=== PATIENT | female | born 1955 | race Caucasian/White ===

== ENCOUNTER 2019-04-08 08:31 | Emergency (ER) | payer OTHER ==
--- NOTE | 2019-04-08 09:42 | EDM.PDOC ---
ED HPI GENERAL MEDICAL PROBLEM - General Chief Complaint: Abdominal Pain Stated Complaint: LOWER ABD PAIN Time Seen by Provider: 04/08/19 08:50 Source of Information: Reports: Patient, RN History Limitations: Reports: No Limitations - History of Present Illness INITIAL COMMENTS - FREE TEXT/NARRATIVE: ED with lower abdominal pain starting on Thursday, Worsening past couple of days, Has not slept past 2 nights as unable to find position of comfort, Possible fever last night, Normal BM's, No nausea or vomiting. No change in stools, Last colonoscopy 4 years ago and no problems. Denies urinary symptoms. Pain colicky type, mild at least up to 10/10 at worst. Some decrease in appetite. On metformin and phentermine for weight loss. Notes is not diabetic. Has not taken Metformin for past week Abdominal Pain Score (Numeric/FACES): 10 - Related Data Allergies Allergy/AdvReac Type Severity Reaction Status Date / Time phenytoin [From Dilantin] Allergy Hives Verified 04/08/19 08:51 Home Meds: Home Meds Aspirin [Adult Low Dose Aspirin EC] 81 mg PO DAILY 04/08/19 [History] Furosemide 04/08/19 [History] buPROPion [Wellbutrin] 75 mg PO DAILY 04/08/19 [History] hydroCHLOROthiazide [Hydrochlorothiazide] 04/08/19 [History] ED ROS GENERAL - Review of Systems Review Of Systems: ROS reveals no pertinent complaints other than HPI. ED EXAM, GI/ABD - Physical Exam Exam: See Below Exam Limited By: No Limitations General Appearance: Alert, Mild Distress, Obese Eyes: Bilateral: EOMI Ears: Normal External Exam, Hearing Grossly Normal Nose: Normal Mucosa Throat/Mouth: Normal Inspection, Normal Lips Head: Atraumatic, Normocephalic Neck: Normal Inspection, Full Range of Motion Respiratory/Chest: No Respiratory Distress, Lungs Clear, Normal Breath Sounds Cardiovascular: Normal Peripheral Pulses, Regular Rate, Rhythm, No Murmur GI/Abdominal Exam: Normal Bowel Sounds (upper quads), Soft, Tender (lower abdomen with light palpation), Abnormal Bowel Sounds (some decrease lower quads in comparison to upper). No: Distended, Guarding, Rebound Extremities: Normal Range of Motion Neurological: Alert, Oriented, Normal Cognition Psychiatric: Normal Affect Skin Exam: Warm, Dry, Intact, Normal Color Course - Vital Signs Last Recorded V/S: Last Vital Signs Temp 97.8 F 04/08/19 08:43 Pulse 83 04/08/19 08:43 Resp 20 04/08/19 08:43 BP 110/92 H 04/08/19 08:43 Pulse Ox 100 04/08/19 08:43 - Orders/Labs/Meds Labs: Laboratory Tests 04/08/19 04/08/19 04/08/19 Range/Units 09:17 09:17 09:17 WBC 14.0 H (5.0-10.0) 10^3/uL RBC 4.83 (4.2-5.4) 10^6/uL Hgb 13.9 (12.0-16.0) g/dL Hct 42.2 (37.0-47.0) % MCV 87.4 (80-100) fL MCH 28.8 (27.0-34.0) pg MCHC 32.9 L (33.0-35.0) g/dL Plt Count 287 (150-450) 10^3/uL Neut % (Auto) 84.8 H (42.2-75.2) % Lymph % (Auto) 8.7 L (20.5-50.1) % [place] % (Auto) 5.5 (2-8) % Eos % (Auto) 0.6 L (1.0-3.0) % Baso % (Auto) 0.4 (0.0-1.0) % Sodium 136 (135-145) mmol/L Potassium 3.2 L (3.6-5.0) mmol/L Chloride 95 L (101-111) mmol/L Carbon Dioxide 29.0 (21.0-31.0) mmol/L Anion Gap 15.2 BUN 13 (7-18) mg/dL Creatinine 0.9 (0.6-1.3) mg/dL Est Cr Clr Drug Dosing 50.60 mL/min Estimated GFR (MDRD) > 60 BUN/Creatinine Ratio 14.44 Glucose 129 H (74-105) mg/dL Lactic Acid (0.5-2.2) mmol/L Calcium 9.4 (8.4-10.2) mg/dl Total Bilirubin 0.9 (0.2-1.0) mg/dL AST 23 (10-42) IU/L ALT 28 (10-60) IU/L Alkaline Phosphatase 85 (42-121) IU/L Total Protein 7.2 (6.7-8.2) g/dl Albumin 3.9 (3.2-5.5) g/dl Globulin 3.3 Albumin/Globulin Ratio 1.18 Amylase 22 L (28-100) U/L Lipase 31 (22-51) U/L Urine Color Yellow (YELLOW) Urine Appearance Clear (CLEAR) Urine pH 7.0 (5.0-9.0) Ur Specific [place] 1.015 (1.005-1.030) Urine Protein Negative (NEGATIVE) Urine Glucose (UA) Negative (NEGATIVE) Urine Ketones Negative (NEGATIVE) Urine Occult Blood Negative (NEGATIVE) Urine Nitrite Negative (NEGATIVE) Urine Bilirubin Negative (NEGATIVE) Urine Urobilinogen 1.0 (0.2-1.0) mg/dL Ur Leukocyte Esterase Negative (NEGATIVE) 04/08/19 Range/Units 09:17 WBC (5.0-10.0) 10^3/uL RBC (4.2-5.4) 10^6/uL Hgb (12.0-16.0) g/dL Hct (37.0-47.0) % MCV (80-100) fL MCH (27.0-34.0) pg MCHC (33.0-35.0) g/dL Plt Count (150-450) 10^3/uL Neut % (Auto) (42.2-75.2) % Lymph % (Auto) (20.5-50.1) % [place] % (Auto) (2-8) % Eos % (Auto) (1.0-3.0) % Baso % (Auto) (0.0-1.0) % Sodium (135-145) mmol/L Potassium (3.6-5.0) mmol/L Chloride (101-111) mmol/L Carbon Dioxide (21.0-31.0) mmol/L Anion Gap BUN (7-18) mg/dL Creatinine (0.6-1.3) mg/dL Est Cr Clr Drug Dosing mL/min Estimated GFR (MDRD) BUN/Creatinine Ratio Glucose (74-105) mg/dL Lactic Acid 1.7 (0.5-2.2) mmol/L Calcium (8.4-10.2) mg/dl Total Bilirubin (0.2-1.0) mg/dL AST (10-42) IU/L ALT (10-60) IU/L Alkaline Phosphatase (42-121) IU/L Total Protein (6.7-8.2) g/dl Albumin (3.2-5.5) g/dl Globulin Albumin/Globulin Ratio Amylase (28-100) U/L Lipase (22-51) U/L Urine Color (YELLOW) Urine Appearance (CLEAR) Urine pH (5.0-9.0) Ur Specific [place] (1.005-1.030) Urine Protein (NEGATIVE) Urine Glucose (UA) (NEGATIVE) Urine Ketones (NEGATIVE) Urine Occult Blood (NEGATIVE) Urine Nitrite (NEGATIVE) Urine Bilirubin (NEGATIVE) Urine Urobilinogen (0.2-1.0) mg/dL Ur Leukocyte Esterase (NEGATIVE) Meds: Medications Discontinued Medications Generic Name Dose Route Start Last Admin Trade Name Freq PRN Reason Stop Dose Admin Hydromorphone HCl 1 mg 04/08/19 11:03 04/08/19 11:12 Dilaudid IVPUSH 04/08/19 11:04 1 mg ONETIME ONE Administration Iopamidol 100 ml 04/08/19 09:56 04/08/19 10:23 Isovue-300 (61%) IVPUSH 04/08/19 09:57 100 ml ONETIME ONE Administration Ondansetron HCl 4 mg 04/08/19 11:03 Zofran IV 04/08/19 11:04 ONETIME ONE Departure - Departure Time of Disposition: 11:52 Disposition: Home, Self-Care 01 Condition: Good Clinical Impression: Diverticulitis large intestine Qualifiers: Diverticulitis bleeding: unspecified bleeding status Diverticulitis complication: without perforation or abscess Qualified Code(s): K57.32 - Diverticulitis of large intestine without perforation or abscess without bleeding - Discharge Information *PRESCRIPTION DRUG MONITORING PROGRAM REVIEWED*: No *COPY OF PRESCRIPTION DRUG MONITORING REPORT IN PATIENT JINNY: No Instructions: Diverticulitis Forms: ED Department Discharge Additional Instructions: light diet increase fluids rest no alcohol while taking flagyl zofran 4mg ODT one every 6 hours as needed for nausea cipro 500mg one twice daily for 10 days flagyl 500mg one three times daily hydrocodone 10/325 one every 6 hours as needed for severe pain avoid ibuprofen
[2019-04-08 09:48] LABS: ANION GAP 15.2; CHLORIDE,CL 95 mmol/L (101-111); SODIUM,NA 136 mmol/L (135-145)
[2019-04-08] MEDS ORDERED: Iopamidol 612 MG/ML 100 ML Bottle IVPUSH ONE (09:56)
[2019-04-08] MEDS ORDERED: HYDROmorphone 1 MG/ML Syringe IVPUSH ONE (11:03)
[2019-04-08] MEDS ORDERED: Ondansetron 4 MG/2 ML SDV IV ONE (11:03)
--- NOTE | 2019-04-08 11:26 | CT ---
EXAMINATION: Abdomen Pelvis w Cont SEX: Female AGE: 63 years CLINICAL HISTORY: 63 year-old 239 pound female complaining of lower abdominal pain. Patient has history of previous surgeries (hysterectomy; cholecystectomy) and "distal colonic diverticulitis" (CT scan 11 May 2012). Scan technique: Volume acquisition of data from the abdomen and pelvis obtained without oral contrast but after intravenous infusion of 75 cc nonionic Isovue contrast while patient waslying supine on the Siemens multi slice scanner [facility]. All data archived in the PACS system for storage, reformatting axial/sagittal/coronal planes and study. Interpretation: Abnormal. 1. Multiple sigmoid diverticula with associated inflammatory "dirty" pericolonic fat i.e. acute diverticulitis. No abscess. 2. Diverticula also identified in both flexures and the descending left colon. No colonic mass lesion or mechanical bowel obstruction. Normal retrocecal appendix RLQ. 3. No pelvic or abdominal mass lesion. No mesenteric or retroperitoneal lymphadenopathy. No ascites or free air. 4. Cholecystectomy. Liver, stomach, spleen, pancreas and adrenal glands unremarkable. 5. Normal caliber aortoiliac vessels. 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 6. Normal cardiac silhouette. Lung bases clear. CONCLUSION: Acute DIVERTICULITIS, sigmoid colon.
== END 2019-04-08 12:12 | disposition home or self-care (01) ==
LOC: DL.ED 08:31
DX: K57.32 Diverticulitis of large intestine without perforation or abscess without bleeding (principal); Z88.8 Allergy status to other drugs, medicaments and biological substances; Z79.82 Long term (current) use of aspirin; Z79.899 Other long term (current) drug therapy
CPT/HCPCS: 36415; 74177; 80053; 81003; 82150; 83605; 83690; 85025; 96374; 99284; J1170; Q9967

== ENCOUNTER 2019-07-11 05:53 | Day surgery (SDC) | payer OTHER ==
[2019-07-11] MEDS ORDERED: Sodium Chloride 0.9% 10 ML Syringe FLUSH PRN (06:00)
[2019-07-11] MEDS ORDERED: Dextrose 5%-0.45% NaCl 1,000 ML IV SCH (06:00)
[2019-07-11] MEDS ORDERED: Midazolam 1 MG/ML 2 ML SDV ONE (06:16)
[2019-07-11] MEDS ORDERED: fentaNYL 100 MCG/2 ML SDV ONE (06:17)
[2019-07-11] MEDS ORDERED: fentaNYL 100 MCG/2 ML SDV IV ONE ×6 (07:10→07:24)
[2019-07-11] MEDS ORDERED: Midazolam 1 MG/ML 2 ML SDV IV ONE ×6 (07:11→07:17)
--- NOTE | 2019-07-11 08:17 | OR ---
DATE: 07/11/2019 PROCEDURE: Total colonoscopy. INSTRUMENT USED: PCF-H190DL Olympus video colonoscope. PREMEDICATIONS: Fentanyl 200 mcg intravenous, Versed 4 mg intravenous, nasal O2 cannula. The procedure was done under pulse oximetry, BP recording, and sexual abuse counsellor. INDICATION: The patient with recent subacute colonic diverticulitis and intermittent small volume rectal bleeding recently. Colonoscopic examination is done for detection of any polypoid lesions and removal, endoscopic hemostasis therapy if needed. DESCRIPTION OF PROCEDURE: Initial rectal exam showed small external hemorrhoidal tags. Rigid anoscopy showed small internal hemorrhoids which are bleeding from them. The colonoscope was passed with ease. Numerous scattered diverticula were noted in the distal left colon along with deformity. The scope was passed with ease up to the ileocecal area. The colon was found to be a long and redundant. Photographs were taken of the normal-appearing cecum, identified by landmarks of appendiceal orifice and double-bulged ileocecal folds. No bleeding was noted from any of the visualized areas at the commencement of the examination. The bowel preparation was found to be adequate, Energy scale 2 in all the regions. No stricture. No vascular ectasia. No large isolated ulcerations seen. No evidence of diffuse inflammatory bowel disease in the form of friability, contact bleeding, or ulcerations. No polyp or tumor mass identified. Some erythema was noted around one of the diverticular openings in the distal left colon. Probing the proximal sides of folds and flexures using adequate distention and clearing up the stool material, withdrawal of the scope was made, cecum to rectum time over 6 minutes. No bleeding was noted from any of the visualized areas at the completion of examination. IMPRESSION: 1. External and internal hemorrhoids. 2. Diverticulosis. The patient tolerated the procedure well. [facility] /[id number]
== END 2019-07-11 09:39 | disposition home or self-care (01) ==
LOC: DL.ENDO 05:53
PROVIDERS: ATTEND Internal Medicine Gastroenterology
DX: K57.30 Diverticulosis of large intestine without perforation or abscess without bleeding (principal); K62.5 Hemorrhage of anus and rectum; K64.8 Other hemorrhoids; K64.4 Residual hemorrhoidal skin tags; Q43.8 Other specified congenital malformations of intestine
CPT/HCPCS: G0121; J2250; J3010; J7042

== ENCOUNTER 2019-07-31 11:19 | Emergency (ER) | payer OTHER ==
[2019-07-31] MEDS ORDERED: Colchicine 0.6 MG Tab PO ONE (11:47)
[2019-07-31] MEDS ORDERED: methylPREDNISolone Sodium Succinate 125 MG/2 ML SDV IM ONE (11:47)
[2019-07-31] MEDS ORDERED: Lidocaine 5% Oint 35.44 GM Tube TOP ONE (11:47)
[2019-07-31 12:19] LABS: ANION GAP 14.8
[2019-07-31] MEDS ORDERED: Potassium Chloride 10 MEQ Tab.ER PO ONE (12:27)
--- NOTE | 2019-07-31 12:30 | EDM.PDOC ---
Scribed by Fiorella Tejada 07/31/19 [id number] for Miguel Jarrett MD ED HPI GENERAL MEDICAL PROBLEM - General Chief Complaint: Lower Extremity Injury/Pain Stated Complaint: GOUT LEFT BIG TOE Time Seen by Provider: 07/31/19 11:37 Source of Information: Reports: Patient, RN, RN Notes Reviewed History Limitations: Reports: No Limitations - History of Present Illness INITIAL COMMENTS - FREE TEXT/NARRATIVE: Patient presents to ER with gout to left foot and left great toe. Patient rates pain 10/. Pt states she had gout in the same joint 1 or 2 weeks ago and was treated at [facility] same day clinic with Colchicine and Prednisone. She says the clinic doctor told her to ice the foot, but that made it worse. I explained to the pt that heat actually helps dissolve gout crystals and ice does in fact make it worse. Onset: Gradual Duration: Getting Worse Location: Reports: Lower Extremity, Left Quality: Reports: Ache Severity: Moderate Improves with: Reports: None Worsens with: Reports: None Associated Symptoms: Reports: No Other Symptoms Left Foot Pain Score (Numeric/FACES): 70 - Related Data Allergies Allergy/AdvReac Type Severity Reaction Status Date / Time phenytoin [From Dilantin] Allergy Hives Verified 07/31/19 11:30 Home Meds: Home Meds Aspirin [Adult Low Dose Aspirin EC] 81 mg PO DAILY 04/08/19 [History] Furosemide 20 mg PO DAILY 04/08/19 [History] buPROPion [Wellbutrin] 75 mg PO DAILY 04/08/19 [History] hydroCHLOROthiazide [Hydrochlorothiazide] 50 mg PO DAILY 04/08/19 [History] Simvastatin 40 mg PO DAILY 07/08/19 [History] Past Medical History HEENT History: Reports: Impaired Vision Cardiovascular History: Reports: High Cholesterol, Hypertension Respiratory History: Reports: Sleep Apnea Gastrointestinal History: Reports: None, Colon Polyp, Hemorrhoids Genitourinary History: Reports: None 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: , 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 Musculoskeletal History: Reports: None, Arthritis Neurological History: Reports: CVA Psychiatric History: Reports: Anxiety, Depression Endocrine/Metabolic History: Reports: Obesity/BMI 30+, Osteopenia Hematologic History: Reports: None Immunologic History: Reports: None Oncologic (Cancer) History: Reports: None Dermatologic History: Reports: None - Infectious Disease History Infectious Disease History: Reports: None - Past Surgical History Head Surgeries/Procedures: Reports: None HEENT Surgical History: Reports: None Cardiovascular Surgical History: Reports: None Respiratory Surgical History: Reports: None GI Surgical History: Reports: Colonoscopy, Polypectomy Female Surgical History: Reports: Section, Hysterectomy Endocrine Surgical History: Reports: None Neurological Surgical History: Reports: None Musculoskeletal Surgical History: Reports: None Oncologic Surgical History: Reports: None Dermatological Surgical History: Reports: None Social & Family History - Family History Family Medical History: Noncontributory - Caffeine Use Caffeine Use: Reports: Coffee Other Caffeine Use: AVERAGE OF 2 CAFFIENATED BEVERAGES DAILY 1 CUP COFFEE, 1 CAN DIET COKE - Living Situation & Occupation Occupation: Employed Review of Systems - Review of Systems Review Of Systems: Comprehensive ROS is negative, except as noted in HPI. ED EXAM, GENERAL - Physical Exam Exam: See Below Exam Limited By: No Limitations General Appearance: Alert, WD/WN, No Apparent Distress, Obese Throat/Mouth: Normal Inspection Head: Atraumatic, Normocephalic Neck: Normal Inspection Respiratory/Chest: No Respiratory Distress Cardiovascular: Normal Peripheral Pulses, Regular Rate, Rhythm Back Exam: Normal Inspection Extremities: Normal Range of Motion (Except for left 1st MTPJ), No Pedal Edema, Normal Capillary Refill, Joint Swelling (Left 1st MTPJ is acutely tender, with increased warmth, swelling, and erythema, skin is intact.). No: Sarika's Sign Neurological: Alert, Oriented, No Motor/Sensory Deficits Psychiatric: Normal Mood Skin Exam: Dry, Intact Course - Vital Signs Last Recorded V/S: Last Vital Signs Temp 96.8 F 07/31/19 11:26 Pulse 86 07/31/19 11:26 Resp 18 07/31/19 11:26 BP 145/95 H 07/31/19 11:26 Pulse Ox 100 07/31/19 11:26 - Orders/Labs/Meds Orders: Active Orders 24 hr Category Date Time Status Potassium Chloride [Klor-Con 10] Med 07/31/19 12:27 Once 60 meq PO ONETIME ONE Labs: Laboratory Tests 07/31/19 07/31/19 07/31/19 Range/Units 11:54 11:54 11:54 WBC 10.8 H (5.0-10.0) 10^3/uL RBC 4.67 (4.2-5.4) 10^6/uL Hgb 13.3 (12.0-16.0) g/dL Hct 40.3 (37.0-47.0) % MCV 86.3 (80-100) fL MCH 28.5 (27.0-34.0) pg MCHC 33.0 (33.0-35.0) g/dL Plt Count 266 (150-450) 10^3/uL Neut % (Auto) 80.0 H (42.2-75.2) % Lymph % (Auto) 12.8 L (20.5-50.1) % [place] % (Auto) 5.9 (2-8) % Eos % (Auto) 0.7 L (1.0-3.0) % Baso % (Auto) 0.6 (0.0-1.0) % Sodium 136 (135-145) mmol/L Potassium 2.8 L (3.6-5.0) mmol/L Chloride 92 L (101-111) mmol/L Carbon Dioxide 32.0 H (21.0-31.0) mmol/L Anion Gap 14.8 BUN 20 H (7-18) mg/dL Creatinine 1.0 (0.6-1.3) mg/dL Est Cr Clr Drug Dosing 44.95 mL/min Estimated GFR (MDRD) 56 BUN/Creatinine Ratio 20.00 Glucose 113 H (74-105) mg/dL Uric Acid 9.6 H (2.6-7.2) mg/dL Calcium 9.2 (8.4-10.2) mg/dl Total Bilirubin 0.8 (0.2-1.0) mg/dL AST 24 (10-42) IU/L ALT 27 (10-60) IU/L Alkaline Phosphatase 66 (42-121) IU/L C-Reactive Protein 1.7 H (0.0-1.3) mg/dL Total Protein 6.9 (6.7-8.2) g/dl Albumin 3.8 (3.2-5.5) g/dl Globulin 3.1 Albumin/Globulin Ratio 1.23 Meds: Medications Discontinued Medications Generic Name Dose Route Start Last Admin Trade Name Freq PRN Reason Stop Dose Admin Colchicine 1.2 mg 07/31/19 11:47 07/31/19 12:00 Colcrys PO 07/31/19 11:48 1.2 mg ONETIME ONE Administration Lidocaine HCl 15 gm 07/31/19 11:47 07/31/19 12:02 Lidocaine 5% TOP 07/31/19 11:48 15 gm ONETIME ONE Administration Methylprednisolone Sodium Succinate 125 mg 07/31/19 11:47 07/31/19 12:02 Solu-Medrol IM 07/31/19 11:48 125 mg ONETIME ONE Administration Departure - Departure Time of Disposition: 12:08 Disposition: Home, Self-Care 01 Condition: Good Clinical Impression: Gouty arthritis of left great toe, Hypokalemia - Discharge Information *PRESCRIPTION DRUG MONITORING PROGRAM REVIEWED*: Not Applicable *COPY OF PRESCRIPTION DRUG MONITORING REPORT IN PATIENT JINNY: Not Applicable Instructions: Low-Purine Eating Plan, Gout Forms: ED Department Discharge Additional Instructions: Rx: Prednisone 20mg Rx: [place] (Hydrocodone) 5mg/325mg Rx: Colchicine Rx: Potassium Chloride 20mEq *Take with meals. Use dark cerna extract daily. Follow directions on package/label for dosing and precautions. Drink plenty of water. Avoid alcohol. Low purine diet. Hot pack or hot soaks. Follow up in clinic with Dr. Leal within the next one week for further gout evaluation and prevention planning. Sepsis Event Note - Evaluation Sepsis Screening Result: No Definite Risk - Focused Exam Vital Signs: Vital Signs Temp Pulse Resp BP Pulse Ox 07/31/19 11:26 96.8 F 86 18 145/95 H 100 Date Exam was Performed: 07/31/19 Time Exam was Performed: 12:28 - My Orders Last 24 Hours: My Active Orders 07/31/19 12:27 Potassium Chloride [Klor-Con 10] 60 meq PO ONETIME ONE - Assessment/Plan Last 24 Hours: My Active Orders 07/31/19 12:27 Potassium Chloride [Klor-Con 10] 60 meq PO ONETIME ONE I have read and agree with the documentation that has been completed regarding this visit. By signing this record, I attest that the documentation was completed in my physical presence and is an accurate record of the encounter.
== END 2019-07-31 12:54 | disposition home or self-care (01) ==
LOC: DL.ED 11:19
DX: M10.9 Gout, unspecified (principal); E87.6 Hypokalemia; F41.9 Anxiety disorder, unspecified; F32.9 Major depressive disorder, single episode, unspecified; E66.9 Obesity, unspecified; Z68.39 Body mass index [BMI] 39.0-39.9, adult; Z79.82 Long term (current) use of aspirin; Z79.899 Other long term (current) drug therapy; Z86.73 Personal history of transient ischemic attack (TIA), and cerebral infarction without residual deficits; Z88.8 Allergy status to other drugs, medicaments and biological substances
CPT/HCPCS: 36415; 80053; 84550; 85025; 86140; 96372; 99283; A9270; J2930

== ENCOUNTER 2021-01-18 12:51 | Emergency (ER) | payer OTHER ==
--- NOTE | 2021-01-18 13:17 | EDM.PDOC ---
ED HPI GENERAL MEDICAL PROBLEM - General Chief Complaint: Upper Extremity Injury/Pain Stated Complaint: FELL ON HAND Time Seen by Provider: 01/18/21 13:15 Source of Information: Reports: Patient History Limitations: Reports: No Limitations - History of Present Illness INITIAL COMMENTS - FREE TEXT/NARRATIVE: Patient is unfortunate 65-year-old obese female who presents emerged part today with complaint of left wrist pain. The patient reports she was in her normal state of health approximately 9 AM this morning when she has same level mechanical fall she tripped while walking and fell onto her left wrist she has had pain and swelling to her left wrist ever since. She reports that she put an ice pack on it at home and when she continued to have swelling and pain when she gripped her left hand she came concerned and presented emerged part for further evaluation. Distal neurovascular is intact - Related Data Allergies Allergy/AdvReac Type Severity Reaction Status Date / Time phenytoin [From Dilantin] Allergy Hives Verified 07/31/19 11:30 Home Meds: Home Meds Aspirin [Adult Low Dose Aspirin EC] 81 mg PO DAILY 04/08/19 [History] Furosemide 20 mg PO DAILY 04/08/19 [History] buPROPion [Wellbutrin] 75 mg PO DAILY 04/08/19 [History] hydroCHLOROthiazide [Hydrochlorothiazide] 50 mg PO DAILY 04/08/19 [History] Simvastatin 40 mg PO DAILY 07/08/19 [History] Past Medical History HEENT History: Reports: Impaired Vision Cardiovascular History: Reports: High Cholesterol, Hypertension Respiratory History: Reports: Sleep Apnea Gastrointestinal History: Reports: None, Colon Polyp, Hemorrhoids Genitourinary History: Reports: None 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: , 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 Musculoskeletal History: Reports: None, Arthritis Neurological History: Reports: CVA Psychiatric History: Reports: Anxiety, Depression Endocrine/Metabolic History: Reports: Obesity/BMI 30+, Osteopenia Hematologic History: Reports: None Immunologic History: Reports: None Oncologic (Cancer) History: Reports: None Dermatologic History: Reports: None - Infectious Disease History Infectious Disease History: Reports: None - Past Surgical History Head Surgeries/Procedures: Reports: None HEENT Surgical History: Reports: None Cardiovascular Surgical History: Reports: None Respiratory Surgical History: Reports: None GI Surgical History: Reports: Colonoscopy, Polypectomy Female Surgical History: Reports: Section, Hysterectomy Endocrine Surgical History: Reports: None Neurological Surgical History: Reports: None Musculoskeletal Surgical History: Reports: None Oncologic Surgical History: Reports: None Dermatological Surgical History: Reports: None Social & Family History - Family History Family Medical History: No Pertinent Family History - Caffeine Use Caffeine Use: Reports: Coffee Other Caffeine Use: AVERAGE OF 2 CAFFIENATED BEVERAGES DAILY 1 CUP COFFEE, 1 CAN DIET COKE - Living Situation & Occupation Occupation: Employed Review of Systems - Review of Systems Review Of Systems: Comprehensive ROS is negative, except as noted in HPI. Constitutional: Reports: No Symptoms Musculoskeletal: Reports: Joint Pain ED EXAM, GENERAL - Physical Exam Exam: See Below Exam Limited By: No Limitations General Appearance: Alert, WD/WN, Mild Distress Throat/Mouth: Normal Inspection Head: Atraumatic, Normocephalic Respiratory/Chest: No Respiratory Distress, Lungs Clear, Normal Breath Sounds, No Accessory Muscle Use, Chest Non-Tender Cardiovascular: Normal Peripheral Pulses, Regular Rate, Rhythm, No Edema, No Gallop, No JVD, No Murmur, No Rub GI/Abdominal: Normal Bowel Sounds, Soft, Non-Tender, No Organomegaly, No Distention, No Abnormal Bruit, No Mass Extremities: Other (Moderate swelling to left wrist with a small abrasion on the lateral aspect and a contusion on the medial aspect, distal neurovascular is intact, no tendon dysfunction noted) Course - Vital Signs Text/Narrative:: Left wrist, interpreted by me, NAD, no fracture, no navicular fracture Work-up today is reassuring, will discharge patient home place patient in Velcro wrist splint have patient follow-up outpatient with PCP or return to the emergency department for any worsening condition Last Recorded V/S: Last Vital Signs Temp 98.1 F 01/18/21 13:15 Pulse 89 01/18/21 13:15 Resp 16 01/18/21 13:15 BP 130/70 01/18/21 13:15 Pulse Ox 99 01/18/21 13:15 - Orders/Labs/Meds Orders: Active Orders 24 hr Category Date Time Status Wrist Comp Min 3V Lt [CR] Urgent Exams 01/18/21 13:14 Taken Departure - Departure Time of Disposition: 13:42 Disposition: Home, Self-Care 01 Condition: Good Clinical Impression: Contusion of left wrist, initial encounter Left wrist sprain Qualifiers: Encounter type: initial encounter Qualified Code(s): S63.502A - Unspecified sprain of left wrist, initial encounter - Discharge Information *PRESCRIPTION DRUG MONITORING PROGRAM REVIEWED*: No *COPY OF PRESCRIPTION DRUG MONITORING REPORT IN PATIENT JINNY: No Instructions: Contusion, [id number], Wrist Sprain Rehab-SportsMed Forms: ED Department Discharge Additional Instructions: Home, rest, ice 20 minutes at a time 3-4 times daily, Tylenol as needed for pain, return as needed for any worsening condition Follow-up outpatient with PCP in 1 week, if no improvement in symptoms follow-up with orthopedist in 1 week Sepsis Event Note (ED) - Focused Exam Vital Signs: Vital Signs Temp Pulse Resp BP Pulse Ox 01/18/21 13:15 98.1 F 89 16 130/70 99 - My Orders Last 24 Hours: My Active Orders 01/18/21 13:14 Wrist Comp Min 3V Lt [CR] Urgent - Assessment/Plan Last 24 Hours: My Active Orders 01/18/21 13:14 Wrist Comp Min 3V Lt [CR] Urgent
--- NOTE | 2021-01-18 14:09 | CR ---
PROCEDURE INFORMATION: Exam: XR Left Wrist Exam date and time: 01/18/2021 1:29 PM Age: 65 years old Clinical indication: Pain; Wrist; Left; Additional info: Pain/fall TECHNIQUE: Imaging protocol: XR Left wrist. Views: 3 or more views. COMPARISON: No relevant prior studies available. FINDINGS: Bones/joints: No acute fracture or dislocation is identified. The radiocarpal compartment is mildly narrowed. There are moderate productive changes about the 1st carpometacarpal joint, with periarticular osteophyte formation an osteochondral bodies, along with degenerative cystic change is at the base of the 1st metacarpal and in the trapezium. Soft tissues: The soft tissues appear grossly unremarkable. IMPRESSION: 1. No acute fracture or dislocation identified. 2. Degenerative changes as described.
== END 2021-01-18 14:00 | disposition home or self-care (01) ==
LOC: DL.ED 12:51
DX: S63.502A Unspecified sprain of left wrist, initial encounter (principal); E78.00 Pure hypercholesterolemia, unspecified; I10 Essential (primary) hypertension; M19.90 Unspecified osteoarthritis, unspecified site; E66.9 Obesity, unspecified; Z68.42 Body mass index [BMI] 45.0-49.9, adult; Z88.8 Allergy status to other drugs, medicaments and biological substances; Z79.82 Long term (current) use of aspirin; Z79.899 Other long term (current) drug therapy; W01.0XXA Fall on same level from slipping, tripping and stumbling without subsequent striking against object, initial encounter
CPT/HCPCS: 73110-LT; 99283-25

== ENCOUNTER 2021-12-14 11:27 | Emergency (ER) | payer MEDICARE, OTHER ==
[2021-12-14] MEDS ORDERED: Acetaminophen/HYDROcodone 325-5 MG Tab PO ONE (11:28)
[2021-12-14] MEDS ORDERED: Ondansetron 4 MG Tab.DIS PO ONE (13:12)
[2021-12-14] MEDS ORDERED: HYDROmorphone 1 MG/ML Syringe IM ONE (13:12)
[2021-12-14] MEDS ORDERED: Acetaminophen/HYDROcodone 325-10 MG Tab ONE (13:22)
[2021-12-14] MEDS ORDERED: Acetaminophen/HYDROcodone 325-5 MG Tab ONE (13:28)
== END 2021-12-14 13:45 | disposition home or self-care (01) ==
LOC: DL.ED 11:27
DX: S82.811A Torus fracture of upper end of right fibula, initial encounter for closed fracture (principal); E78.00 Pure hypercholesterolemia, unspecified; I10 Essential (primary) hypertension; E66.9 Obesity, unspecified; Z68.41 Body mass index [BMI] 40.0-44.9, adult; Z86.73 Personal history of transient ischemic attack (TIA), and cerebral infarction without residual deficits; Z88.8 Allergy status to other drugs, medicaments and biological substances; Z79.899 Other long term (current) drug therapy; W18.30XA Fall on same level, unspecified, initial encounter
CPT/HCPCS: 73562; 73590; 96372; 99283; A9270; J1170

== ENCOUNTER 2024-05-06 21:18 | Emergency (ER) | payer MEDICARE, OTHER | END 2024-05-06 23:16 | disposition home or self-care (01) | LOC: DL.ED 21:18 | DX: U07.1 COVID-19 (principal); J06.9 Acute upper respiratory infection, unspecified; K52.9 Noninfective gastroenteritis and colitis, unspecified; I10 Essential (primary) hypertension; K21.9 Gastro-esophageal reflux disease without esophagitis; E66.9 Obesity, unspecified; Z68.42 Body mass index [BMI] 45.0-49.9, adult; Z86.16 Personal history of COVID-19; Z90.49 Acquired absence of other specified parts of digestive tract; Z90.710 Acquired absence of both cervix and uterus; Z79.899 Other long term (current) drug therapy; Z88.8 Allergy status to other drugs, medicaments and biological substances | CPT/HCPCS: 71045; 93005; 99284 ==

== ENCOUNTER 2024-11-25 17:51 | Inpatient (IN) | payer MEDICARE ==
[2024-11-25] MEDS ORDERED: Morphine 2 MG/ML SYRINGE IVPUSH PRN (18:26)
[2024-11-25] MEDS ORDERED: Docusate Sodium 100 MG Cap PO PRN (18:26)
[2024-11-25 18:43] LABS: BASOPHILS PERCENT AUTO 0.3 % (0.0-1.0); EOSINOPHILS PERCENT AUTO 0.7 % (1.0-3.0); HEMATOCRIT 38.6 % (37.0-47.0); HEMOGLOBIN 12.7 g/dL (12.0-16.0); LYMPHOCYTES PERCENT AUTO 11.9 % (20.5-50.1); MEAN CORPUSCULAR HEMOGLOBIN 30.2 pg (27.0-34.0); MEAN CORPUSCULAR HGB CONC 32.9 g/dL (33.0-35.0); MEAN CORPUSCULAR VOLUME 91.7 fL (80-100); MONOCYTES PERCENT AUTO 7.1 % (2-8); PLATELET COUNT,PLT 257 10^3/uL (150-450); RED BLOOD CELL COUNT 4.21 10^6/uL (4.2-5.4); WHITE BLOOD CELL COUNT,WBC 11.2 10^3/uL (5.0-10.0)
[2024-11-25] MEDS ORDERED: Fluticasone NASAL Spray 16 GM Bottle SCH (18:45)
[2024-11-25 18:56] LABS: ANION GAP 9.3 mEq/L (7-13); CALCIUM 9.3 mg/dL (8.5-10.1); CREATININE 1.04 mg/dL (0.55-1.02); EST CRCL DRUG DOSING (CG) 40.38 mL/min; POTASSIUM,K 4.3 mmol/L (3.5-5.1)
[2024-11-25] MEDS: Ibuprofen 400 MG Tab PO SCH (19:52)
[2024-11-25] MEDS: Acetaminophen 325 MG Tab PO SCH (19:53)
[2024-11-25] MEDS: Sodium Chloride 0.9% 250 ML IV SCH (19:54)
[2024-11-25] MEDS: metroNIDAZOLE/Normal Saline 500 MG in Premix Bag 1 BAG IV SCH (19:57)
[2024-11-25] MEDS ORDERED: Fluticasone NASAL Spray 16 GM Bottle NASBOTH PRN (20:58)
[2024-11-25] MEDS: Ciprofloxacin in D5W 400 MG in Premix Bag 1 BAG IV SCH (22:54)
[2024-11-25] MEDS: Heparin Sodium 5,000 Units/ML Vial SUBCUT SCH (22:54)
[2024-11-25] MEDS: Sodium Chloride 0.9% 1,000 ML IV SCH (22:55)
[2024-11-26 06:36] LABS: BASOPHILS PERCENT AUTO 0.5 % (0.0-1.0); HEMATOCRIT 34.4 % (37.0-47.0); HEMOGLOBIN 10.9 g/dL (12.0-16.0); LYMPHOCYTES PERCENT AUTO 20.7 % (20.5-50.1); MEAN CORPUSCULAR HEMOGLOBIN 29.4 pg (27.0-34.0); MEAN CORPUSCULAR HGB CONC 31.7 g/dL (33.0-35.0); MEAN CORPUSCULAR VOLUME 92.7 fL (80-100); MONOCYTES PERCENT AUTO 9.4 % (2-8); NEUTROPHILS PERCENT AUTO 67.4 % (42.2-75.2); PLATELET COUNT,PLT 198 10^3/uL (150-450); RED BLOOD CELL COUNT 3.71 10^6/uL (4.2-5.4); WHITE BLOOD CELL COUNT,WBC 8.3 10^3/uL (5.0-10.0)
[2024-11-26] MEDS: Allopurinol 100 MG Tab PO SCH (08:03)
[2024-11-26] MEDS ORDERED: FATTY ACIDS PO SCH (09:00)
[2024-11-26] MEDS ORDERED: EPA PO SCH (09:00)
[2024-11-26] MEDS ORDERED: [UNRECOGNIZED DRUG - OTHER] PO SCH (09:00)
[2024-11-26] MEDS ORDERED: OMEGA PO SCH (09:00)
[2024-11-27 06:20] LABS: BASOPHILS PERCENT AUTO 0.8 % (0.0-1.0); HEMATOCRIT 35.9 % (37.0-47.0); HEMOGLOBIN 11.5 g/dL (12.0-16.0); LYMPHOCYTES PERCENT AUTO 26.4 % (20.5-50.1); MEAN CORPUSCULAR HEMOGLOBIN 29.9 pg (27.0-34.0); MEAN CORPUSCULAR VOLUME 93.2 fL (80-100); MONOCYTES PERCENT AUTO 8.9 % (2-8); NEUTROPHILS PERCENT AUTO 59.9 % (42.2-75.2); PLATELET COUNT,PLT 247 10^3/uL (150-450); RED BLOOD CELL COUNT 3.85 10^6/uL (4.2-5.4); WHITE BLOOD CELL COUNT,WBC 6.2 10^3/uL (5.0-10.0)
[2024-11-27 06:36] LABS: ANION GAP 9.7 mEq/L (7-13); CALCIUM 8.7 mg/dL (8.5-10.1); CREATININE 1.1 mg/dL (0.55-1.02); EST CRCL DRUG DOSING (CG) 38.18 mL/min; POTASSIUM,K 4.7 mmol/L (3.5-5.1)
[2024-11-27] MEDS: Lactulose Soln 10 GM/15 ML 30 ML UD Cup PO SCH (09:38)
[2024-11-27] MEDS: Docusate Sodium 100 MG Cap PO SCH (09:38)
[2024-11-27] MEDS: Polyethylene Glycol 3350 Powder 17 GM Packet PO SCH (09:38)
[2024-11-27] MEDS: Ondansetron 4 MG/2 ML SDV IVPUSH PRN (10:57)
[2024-11-28 06:43] LABS: BASOPHILS PERCENT AUTO 0.8 % (0.0-1.0); EOSINOPHILS PERCENT AUTO 3.9 % (1.0-3.0); HEMATOCRIT 34.6 % (37.0-47.0); LYMPHOCYTES PERCENT AUTO 24.8 % (20.5-50.1); MEAN CORPUSCULAR HEMOGLOBIN 29.5 pg (27.0-34.0); MEAN CORPUSCULAR HGB CONC 31.8 g/dL (33.0-35.0); MEAN CORPUSCULAR VOLUME 92.8 fL (80-100); MONOCYTES PERCENT AUTO 9.1 % (2-8); NEUTROPHILS PERCENT AUTO 61.4 % (42.2-75.2); PLATELET COUNT,PLT 257 10^3/uL (150-450); RED BLOOD CELL COUNT 3.73 10^6/uL (4.2-5.4); WHITE BLOOD CELL COUNT,WBC 4.8 10^3/uL (5.0-10.0)
[2024-11-28 06:55] LABS: ANION GAP 14.3 mEq/L (7-13); CALCIUM 8.7 mg/dL (8.5-10.1); CREATININE 1.05 mg/dL (0.55-1.02); EST CRCL DRUG DOSING (CG) 39.99 mL/min; POTASSIUM,K 4.3 mmol/L (3.5-5.1)
[2024-11-28] MEDS: Potassium Chloride 20 MEQ in Premix Bag 1 BAG IV ONE (13:18)
== END 2024-11-28 15:18 | disposition home or self-care (01) | DRG 392 ==
LOC: DL.MS 17:51
PROVIDERS: ADMIT Internal Medicine; ATTEND Internal Medicine
DX: K57.80 Diverticulitis of intestine, part unspecified, with perforation and abscess without bleeding (principal); Z68.41 Body mass index [BMI] 40.0-44.9, adult; E11.9 Type 2 diabetes mellitus without complications; I10 Essential (primary) hypertension; M10.9 Gout, unspecified; H54.7 Unspecified visual loss; G47.30 Sleep apnea, unspecified; K21.9 Gastro-esophageal reflux disease without esophagitis; M19.90 Unspecified osteoarthritis, unspecified site; R56.9 Unspecified convulsions; F41.9 Anxiety disorder, unspecified; E78.5 Hyperlipidemia, unspecified; F32.A Depression, unspecified; E66.9 Obesity, unspecified; M85.80 Other specified disorders of bone density and structure, unspecified site; Z86.73 Personal history of transient ischemic attack (TIA), and cerebral infarction without residual deficits; Z86.16 Personal history of COVID-19; Z90.49 Acquired absence of other specified parts of digestive tract; Z98.891 History of uterine scar from previous surgery; Z79.84 Long term (current) use of oral hypoglycemic drugs; Z90.710 Acquired absence of both cervix and uterus; Z79.899 Other long term (current) drug therapy; Z88.8 Allergy status to other drugs, medicaments and biological substances; Z96.659 Presence of unspecified artificial knee joint
CPT/HCPCS: 36415; 80048; 85025; 99223; 99232; 99239; A9270-GY; J0744; J1644; J1836; J2405; J7030